=== PATIENT | male | born 1995 | race Caucasian/White ===

== ENCOUNTER 2020-02-07 01:28 | Emergency (ER) | payer OTHER ==
[2020-02-07 02:54] LABS: ABSOLUTE BASOPHILS # (AUTO) 0.1 10^3/uL (0.0-0.2); ABSOLUTE EOSINOPHILS # (AUTO) 0.4 10^3/uL (0.0-0.6); ABSOLUTE LYMPHOCYTES (AUTO) 4.6 10^3/uL (0.5-4.7); ABSOLUTE NEUT (AUTO) 7.2 10^3/uL (1.7-8.2); BASOPHILS % (AUTO) 0.5 % (0-2); EOSINOPHILS % (AUTO) 2.8 % (0-6); HEMATOCRIT 47.5 % (37.9-51.0); LYMPHOCYTES % (AUTO) 34.6 % (13-45); MEAN CORPUSCULAR HEMOGLOBIN 31.2 pg (27.0-33.4); MEAN CORPUSCULAR HGB CONC 35.7 g/dL (32.0-36.0); MEAN CORPUSCULAR VOLUME 87 fl (80-97); MONOCYTES % (AUTO) 7.8 % (3-13); PLATELET COUNT 220 10^3/uL (150-450); RED BLOOD COUNT 5.44 10^6/uL (4.35-5.55); SEGMENTED NEUTROPHILS % (AUTO) 54.3 % (42-78); TOTAL CELLS COUNTED % (AUTO) 100 %; WHITE BLOOD COUNT 13.2 10^3/uL (4.0-10.5)
[2020-02-07] MEDS ORDERED: LORAZEPAM INJ 2 MG/1 ML VIAL IV ONE (02:54)
[2020-02-07] MEDS ORDERED: KETOROLAC TROMETHAMINE INJ/PF 30 MG/1 ML SDV IV ONE (02:55)
[2020-02-07 03:18] LABS: CREATINE KINASE MB 3.49 ng/mL (<4.55)
[2020-02-07 03:23] LABS: TROPONIN I < 0.012 ng/mL
[2020-02-07 03:46] LABS: ALBUMIN 4.9 g/dL (3.5-5.0); ALKALINE PHOSPHATASE 82 U/L (38-126); ANION GAP 9 (5-19); ASPARTATE AMINO TRANSFERASE 54 U/L (17-59); BILIRUBIN,TOTAL 1.7 mg/dL (0.2-1.3); BLOOD UREA NITROGEN 20 mg/dL (7-20); CALCIUM 9.5 mg/dL (8.4-10.2); CARBON DIOXIDE 25 mmol/L (22-30); CHLORIDE 104 mmol/L (98-107); CREATINE KINASE 261 U/L (55-170); GLUCOSE 98 mg/dL (75-110); POTASSIUM 4.1 mmol/L (3.6-5.0); TOTAL PROTEIN 7.9 g/dL (6.3-8.2)
[2020-02-07] MEDS ORDERED: MORPHINE SULFATE 10 MG/ML INJ IV ONE (04:09)
--- NOTE | 2020-02-07 04:12 | ER Document Report ---
ED General - General Chief Complaint: Chest Pain Stated Complaint: CHEST PAIN Time Seen by Provider: 02/07/20 02:40 Mode of Arrival: Ambulatory Information source: Patient Notes: 25-year-old male presents to the emergency department with a complaint of chest pain with associated severe pain involving the left chest and back. Patient denies a prior history of similar episodes and was resting quietly before the onset of symptoms tonight. He denies nausea, vomiting or dizziness. He states that he is scheduled to be on the pistol range this morning. When asked what that has to do with his symptom, he was unable to make any association. He denies feeling stressed or anxious at this time. - Related Data Allergies/Adverse Reactions: No Known Allergies Allergy (Unverified 02/07/20 03:06) Past Medical History - Social History Smoking Status: Never Smoker Family History: Reviewed & Not Pertinent Patient has suicidal ideation: No Patient has homicidal ideation: No Review of Systems - Review of Systems Notes: Constitutional: Negative for fever. HENT: Negative for sore throat. Eyes: Negative for visual changes. Cardiovascular: +chest pain. Respiratory: Negative for shortness of breath. Gastrointestinal: Negative for abdominal pain, vomiting or diarrhea. Genitourinary: Negative for dysuria. Musculoskeletal: Negative for back pain. Skin: Negative for rash. Neurological: Negative for headaches, weakness or numbness. 10 point ROS negative except as marked above and in HPI. Physical Exam - Vital signs Vitals: Temp Pulse Resp BP Pulse Ox 97.8 F 79 18 119/80 98 02/07/20 01:39 02/07/20 01:39 02/07/20 01:39 02/07/20 01:39 02/07/20 01:39 - Notes Notes: PHYSICAL EXAMINATION: Physical Exam: General: Well-nourished well-developed in no acute distress HEENT: NC/AT, pupils equal round and reactive to light, MM moist,nares clear, oropharynx clear, airway patent Neck: supple, no adenopathy, no masses. Good range of motion Lungs: clear, no wheezing, no rales no rhonchi CVS: Regular rate and rhythm no murmur gallop or rub Chest: + Tenderness in the left pectoralis muscle, tightness noted in the left pectoralis muscle. Abdomen: Soft, active, nontender, no masses, no hepatosplenomegaly Ext: No edema, clubbing or cyanosis. Neuro: Alert and responsive, moving all 4 extremities on command, cranial nerves intact, no focal findings Skin: Intact no open lesions, no rash PSYCH: Normal mood, normal affect. Course - Re-evaluation Re-evalutation: 02/07/20 05:10 Patient was given Lorazepam Toradol with some improvement of his symptoms, chest x-ray negative EKG normal, labs within normal range. Discussed with the patient findings of his studies as well as possible etiology of his pain. Muscle spasms involving the anterior chest wall. Given age and risk factors the likelihood of cardiovascular diseases very low. Chest pain score 0. I have encouraged the patient to do some stretching exercises and use a cold c ompress on the area of pain if needed. He may use ibuprofen [id number] for pain. Patient is in agreement with this plan and is now ready for discharge. - Vital Signs Vital signs: Temp Pulse Resp BP Pulse Ox 97.8 F 79 15 124/69 98 02/07/20 01:39 02/07/20 01:39 02/07/20 05:31 02/07/20 05:31 02/07/20 05:31 - Laboratory Result Diagrams: 02/07/20 02:44 02/07/20 02:44 Laboratory results interpreted by me: 02/07/20 02/07/20 02:44 02:44 WBC 13.2 H Total Bilirubin 1.7 H ALT 55 H Creatine Kinase 261 H - Diagnostic Test Radiology reviewed: Image reviewed, Reports reviewed - Chest x-ray: No acute findings. - EKG Interpretation by [place] EKG shows normal: Sinus rhythm - Normal sinus rhythm rate of 87, no acute ST or T wave abnormalities: Interpretation normal EKG. Discharge - Discharge Clinical Impression: Non-cardiac chest pain, Anxiety attack Condition: Good Disposition: HOME, SELF-CARE Instructions: Chest Wall Pain ([facility]) Additional Instructions: You are seen in the emergency department this morning with chest pain, likely a stress reaction, muscle spasm. You may use ibuprofen for pain, cold pack to the area of pain if needed. Follow-up with your doctor as needed. If his symptoms return or if worsening concerns you may return to the emergency department. HOME CARE INSTRUCTIONS & INFORMATION: Thank you for choosing us for your medical needs. We hope you're satisfied with the care you received. After you leave, you must properly care for your problem and, at the same time, observe its progress. Any condition can change. Some illnesses can change rapidly over hours or days. If your condition worsens, return to the Emergency Department or see your physician promptly. ABOUT YOUR X-RAYS AND EKG'S: If you had an EKG or X-rays taken, they have been read by the Emergency Physician. The X-rays and EKG's will also be read by a Radiologist or Steel Plate Printer within 24 hours. If discrepancies are noted, you will be notified by telephone. Please be certain the ED has a correct telephone number & address where you can be reached. Also, realize that some fractures or abnormalities do not show up on initial X-rays. If your symptoms continue, see your physician. ABOUT YOUR LABORATORY TEST: If you had laboratory tests, the results have been reviewed by the Emergency Physician. Some test results (for example cultures) may not be available for several days. You will be contacted if any test result shows you need additional treatment. Please be certain the ED has a correct telephone number and address where you can be reached. ABOUT YOUR MEDICATIONS: You will receive instructions on how to take your medicine on the prescription label you receive. Additional information may be provided by the Pharmacy. If you have questions afterwards, call the ED for clarification or further instructions. Some prescribed medications may cause drowsiness. Do not perform tasks such as driving a car or operating machinery without consulting your Pharmacist. If you feel you need a refill of pain medication, your condition will need re-evaluation. Please do not call for a refill of any medication. ABOUT YOUR SIGNATURE: Signature of this document acknowledges to followin. Understanding that you received emergency treatment and that you may be released before al medical problems are known or treated. Please be certain the ED has a correct phone number & address where you can be reached. 2. Acknowledgement that you will arrange for follow-up care as recommended. 3. Authorization for the Emergency Physician to provide information to your follow-up Physician in order to maximize your care. AT ANY TIME, IF YOUR SYMPTOMS CHANGE SIGNIFICANTLY OR WORSEN OR YOU DEVELOP NEW SYMPTOMS, RETURN TO THE EMERGENCY DEPARTMENT IMMEDIATELY FOR RE-EVALUATION. OUR GOAL IS TO PROVIDE EXCELLENT MEDICAL CARE! WE HOPE THAT WE HAVE MET YOUR EXPECTATIONS DURING YOUR EMERGENCY DEPARTMENT VISIT AND THAT YOU FEEL YOU HAVE RECEIVED EXCELLENT CARE! Forms: Return to Work
--- NOTE | 2020-02-07 04:53 | RADIOLOGY REPORT (SQ) ---
EXAM DESCRIPTION: XR CHEST 1 VIEW COMPLETED DATE/TME: 02/07/2020 04:08 CLINICAL HISTORY: 25 years, Male, chest pain COMPARISON: None. NUMBER OF VIEWS: 1 TECHNIQUE: Portable chest LIMITATIONS: None. FINDINGS: The heart size is normal. The lungs are clear. No pneumothorax IMPRESSION: No acute cardiopulmonary process copyright 2010 [employer]- All Rights Reserved
[2020-02-07 05:35] VITALS: BP 124/69
--- NOTE | 2020-02-07 07:15 | EKG REPORT ---
SEVERITY:- BORDERLINE ECG - SINUS RHYTHM INFERIOR Q WAVES, PROBABLY NORMAL VARIATION : Confirmed by: Shaun Davis MD 07-Feb-2020 07:13:56
== END 2020-02-07 05:43 | disposition home or self-care (01) ==
LOC: ER 01:28
DX: M62.838 Other muscle spasm (principal); F41.9 Anxiety disorder, unspecified; R07.89 Other chest pain; M54.9 Dorsalgia, unspecified
CPT/HCPCS: 93005; 99285; 96374; 96375; 36415; 82553; 82550; 85025; 80053; 84484; 71045; 93010; J1885; J2270; J2060